=== PATIENT | female | born 1995 | race Caucasian/White ===

== ENCOUNTER → 2024-10-29 | Outpatient (CLI) | payer MEDICAID, SELFPAY ==
--- NOTE | 2024-10-29 10:30 | XR_ITS ---
Examination: Ultrasound soft tissue right back TECHNIQUE: Grayscale sonographic images soft tissue right back Exam date and time: October 29, 2024 at 1034 hours INDICATIONS: Palpable mass mid right back note is beginning 3 months ago. FINDINGS: No cystic or solid mass noted at the area concern IMPRESSION: No cystic or solid mass noted, consider CT scan chest without contrast follow-up
== END | disposition home or self-care (01) ==
PROVIDERS: PCP Physician Assistant; Referring Provider Physician Assistant; Visit Provider Physician Assistant
DX: R22.2 Localized swelling, mass and lump, trunk (principal)
CPT/HCPCS: 76705

== ENCOUNTER → 2025-05-20 | Outpatient (CLI) | payer MEDICAID, SELFPAY ==
[2025-05-17 12:29] LABS: HCG Qualitative,Urine Negative
== END | disposition home or self-care (01) ==
LOC: SMRI 06:45
PROVIDERS: PCP Physician Assistant; Referring Provider Physician Assistant; Visit Provider Physician Assistant
DX: Z53.8 Procedure and treatment not carried out for other reasons (principal); Z32.00 Encounter for pregnancy test, result unknown
CPT/HCPCS: 81025